=== PATIENT | female | born 1995 | race Caucasian/White ===

== ENCOUNTER 2017-07-01 21:48 | Emergency (ER) | payer OTHER ==
[~2017-07-01] VITALS: Ht 162.6 cm; Wt 40.9 kg
[~2017-07-01 21:48] MED LIST: BACTRIM,SEPT1 TABLET PO; LOPRESSOR25 MG PO; TESSALON PERLE100 MG PO
[2017-07-01 22:34] LABS: MCHC 33.6 G/DL (30.0-36.0); MCV 89.2 FL (83-99); MEAN PLAT.VOLUME 9.5 uM^3 (9.5-12.4); PLATELET COUNT 293 K/uL (156-360); RBC DIS.WIDTH-CV 11.8 % (11.8-14.6); RBC DIS.WIDTH-SD 37.7 % (39-53); RED BLOOD COUNT 4.37 M/uL (3.80-5.20); WHITE BLOOD COUNT 5.6 K/uL (4.1-10.2)
[2017-07-01 22:48] LABS: CHLORIDE 107 mEq/L (99-109); POTASSIUM 3.4 mEq/L (3.7-5.4); SODIUM 140 mEq/L (136-147)
[2017-07-01 22:50] LABS: GLUCOSE 91 mg/dL (70-99)
[2017-07-01 22:51] LABS: ANION GAP 8 MEQ/L (2-14)
[2017-07-01 22:54] LABS: GFR ESTIMATE (CALCULATED) > 59 mL/min/; UREA NITROGEN (BUN) 12 mg/dL (9-23)
[2017-07-01 23:01] LABS: TROP-I INTERPRETATION NEGATIVE; TROPONIN-I < 0.01 ng/mL (0.0-0.30)
[2017-07-01 23:20] LABS: QUANTITATIVE HCG < 4.0 MIU/ML
[2017-07-02 01:48] LABS: D-DIMER ELISA < 150.00 ng/mLDDU (<230)
[2017-07-02] MEDS ORDERED: ZITHROMAX250 MG PO (01:52)
[2017-07-02] MEDS ORDERED: ROBITUSSIN AC,T10 ML PO (01:52)
[2017-07-02] MEDS ORDERED: DELTASONE20 M1 PO (01:52)
[2017-07-02 02:02] VITALS: BP 125/95
== END 2017-07-02 02:06 | disposition home or self-care (01) ==
LOC: EME 21:48
DX: J20.9 Acute bronchitis, unspecified (principal); I47.9 Paroxysmal tachycardia, unspecified; I34.1 Nonrheumatic mitral (valve) prolapse
CPT/HCPCS: 71020; 80048; 84484; 84702; 85027; 85379; 93005; 99281; 99284; J7512